=== PATIENT | female | born 2005 | race Caucasian/White ===

== ENCOUNTER 2024-12-28 20:46 | Emergency (ER) | payer BC, SELFPAY ==
[2024-12-28 20:49] VITALS: BP 124/80
[2024-12-28 21:13] VITALS: BMI 19.3
[2024-12-28 21:38] LABS: Hematocrit 37.1 % (37.0-47.0); Hemoglobin 12.9 g/dL (12.0-16.0); Mean Corp Hgb Conc. 34.8 g/dL (33.0-37.0); Mean Corpuscular Volume 81.9 fL (81.0-99.0); Nucleated Red Blood Cells % 0 %; Platelet Count 283 10^3/uL (130-400); Red Cell Dist. Width 12.6 % (11.5-14.5)
[2024-12-28 21:55] LABS: HCG, Serum Qualitative Screen Negative
[2024-12-28 21:59] LABS: ALT (SGPT) 10 U/L (0-35); AST (SGOT) 16 U/L (14-36); Albumin 4.1 g/dl (3.5-5.0); Alkaline Phosphatase 41 U/L (38-126); Blood Urea Nitrogen 7 mg/dl (7-17); Calcium 9.1 mg/dl (8.4-10.2); Carbon Dioxide 26 mmol/L (22-30); Chloride 106 mmol/L (98-107); Estimated Creatinine Clearance 120 ml/min; Glucose 83 mg/dl (70-99); Potassium 3.7 mmol/L (3.5-5.1); Sodium 138 mmol/L (135-145); Total Protein 6.6 g/dl (6.3-8.2); eGFR > 60.00
[2024-12-28 23:00] VITALS: BP 114/67
--- NOTE | 2024-12-28 23:28 | ED.GENMED ---
History of Present Illness
General
Chief Complaint: Allergic Reaction
Source: patient
Exam Limitations: none
Time Seen by Provider: 12/28/24 21:10
Nursing documentation reviewed up to this point in time: agreed with
History of Present Illness
History of Present Illness:
Patient to ED iw complaint of left sided throat pain. Noted some irritation on tuesday but since then discomfort has gotten progressively worse. Denies fever/chills. SHe had a peritonsilar abscess in March, drained by ENT in [place]. SHe
feels the pain tonight is similar. Brought to ED by sig other for eval.
Past History
Past History
ED Past Medical History: None
Review of Systems
Review of Systems
Allergies reviewed?: Yes
All Other Systems: ROS reviewed and negative except as documented in HPI and ROS
Constitutional: Reports no symptoms
EENT: Reports sore throat (Left throat pain)
Respiratory: Reports no symptoms
Cardiac: Reports no symptoms
ABD/GI: Reports no symptoms
: Reports no symptoms
Musculoskeletal: Reports no symptoms
Skin: Reports no symptoms
Neurological: Reports no symptoms
Psychiatric: Reports no symptoms
Phy Exam
General Physical Exam
General Presentation: mild distress
General age: appears stated age
General Skin: warm and dry
General Habitus: normal
General Mental: alert
ENT Exam
ENT Exam: swallowing well and other (Left peritonsilar fullness.)
Pulmonary Exam
Pulmonary Exam: no respiratory distress and chest non tender
Musculoskeletal Exam
Musculoskeletal Exam: full ROM and neuro vasc intact
Skin Exam
Skin Exam: normal color, warm/dry and no rash
Psychiatric Exam
Psychiatric Exam: normal mood/affect
Course
Orders/Labs/Results
Orders:
Orders
12/28/24 21:[address] [CT Neck With Iv Contrast] Urgent
Comment:
Reason For Exam: left peritonsilar swelling, throat pain
12/28/24 21:30
Test Result ONCE
12/28/24 21:31
Complete Blood Count/With Diff Urgent
Comprehensive Metabolic Panel Urgent
HCG, Serum Qualitative Screen Urgent
Monotest Urgent
Rapid Strep Group A Urgent
MARCIAL Source: Throat/Pharynx
Specimen Description:
Date Specimen was Collected: 12/28/24
Time Specimen was Collected: 21:30
Abnormal Lab Results
12/28/24
21:31
Absolute Neuts (auto) 6.8 H 10^3/uL
(1.4-6.5)
Absolute Monos (auto) 1.2 H 10^3/uL
(0.1-0.6)
Monocytes % 11.4 H %
(1.7-9.3)
Creatinine 0.5 L mg/dL
(0.6-1.0)
12/28/24 21:31
12/28/24 21:31
Vital Signs
Initial and Last Documented VS:
Initial Vital Signs
Temp Pulse Resp BP Pulse Ox
98.0 F 95 20 124/80 99
12/28/24 20:49 12/28/24 20:49 12/28/24 20:49 12/28/24 20:49 12/28/24 20:49
Last Documented Vital Signs
Temp Pulse Resp BP Pulse Ox
98.0 F 90 18 119/78 98
12/28/24 20:49 12/28/24 23:45 12/28/24 23:45 12/28/24 23:45 12/28/24 23:45
*Pulse Oximetry
SaO2: 98
Oxygen Mode of Delivery: Room air
Patient hypoxic: no
*Critical Care Note
Total Time (30-74mins, 75-104mins- exclusive of procedures): Not Applicable
Update Note
Update Note:
Patient to ED with concern of left peritonsilar abscess. SHe had a pertonsilar abscess in march and felt that the pain was the same. SHe remains afebrile. Labs reviewed, WBC normal. CT tonight confirms left peritonsilar abscess. Case
discussed with Dr. Timmons. Peritonsilar abscess drained bedside by dr. Timmons. Patient tolerated procedure well. Will place on Clindamycin QID x 1 week, first dose given in ED. SHe is discharged home and will follow up with Dr. Timmons in
office next week. Given instructions on s/s to return to ED and she is agreeable to plan.
ED Attending Note
-
Portions of this chart may have been created with voice recognition software.� Occasional wrong word or��sound alike� substitutions may have occurred due to the inherent limitations of voice recognition software.
Discharge Plan
Departure
Patient with high blood pressure during this ER visit?: No
Condition: Good
Covid-19: Not Applicable
Discharge Problem:
Abscess, peritonsillar
Prescriptions:
New
mupirocin [Centany] 2 % ointment
1 applic topical BID Qty: 15 0RF
clindamycin HCl [Cleocin HCl] 300 mg capsule
300 mg PO Q6H Qty: 30 0RF
hydrocodone-acetaminophen 5-325 mg tablet
1 tab PO Q4H PRN (Reason: Pain) Qty: 12 0RF
Referrals:
UNKNOWN - PT DOES,NOT KNOW [Family Provider]
Amaya Timmons MD [Active, Otology]
Referral Note: Call tuesday to schedule your follow up appointment
Activity Restrictions/Additional Instructions:
Follow up with Dr. Timmons next week. Return to the emergency department immediately for any difficulty breathing or swallowing.
Interventions
Interventions:
*Risk Screen - Suicide Last Done: 12/28/24 21:12
*General Assessment Last Done: 12/28/24 20:49
*Neglect/Abuse Screening Last Done: 12/28/24 21:12
*ED- Fall Risk Assessment Last Done: 12/28/24 21:12
*ED COVID-19 Vaccine History Last Done: 12/28/24 21:12
ED- Cardiac Assessment Last Done: 12/28/24 21:15
ED- Pulmonary Assessment Last Done: 12/28/24 21:15
ED-Skin Assessment Last Done: 12/28/24 21:15
Discharge Date and Time
Print Language: [id number]
[2024-12-28 23:45] VITALS: BP 119/78
[2024-12-29] MEDS: NORCO 5/325 1 TABLET PO
[2024-12-29] MEDS: CLEOCIN 300 MG PO (00:01)
== END 2024-12-29 00:10 | disposition home or self-care (01) ==
LOC: EMR 20:46
PROVIDERS: Nurse Practitioner; EMERGENCY PHYSICIAN Emergency Medicine
DX: J36 Peritonsillar abscess (principal)
CPT/HCPCS: 99284; 70491; 80053; 84703; 85025; 86308; 87070; 87880; Q9967